=== PATIENT | male | born 1945 | race Asian ===

== ENCOUNTER 2020-04-17 14:06 | Emergency (ER) | payer MEDICARE ==
[~2020-04-17] VITALS: Ht 175.3 cm; Wt 45.4 kg
[2020-04-17 14:14] VITALS: BP 106/40
--- NOTE | 2020-04-17 14:14 | NUR ---
ED Nurse Note: Patient LETICIA HEBERT from [facility] with c/o dizziness. Per EMS, patient went to stand up and felt lightheaded and nearly fell to the ground. He was caught by nearby workers. Denies LOC/ KO. AAox4, verbally responsive. No SOB. Denies CP. Afebrile. Pt placed on electronic device monitor. ERMD at bedside.
[2020-04-17] MEDS ORDERED: SINEMET 25-1001 EAC1 ORAL (14:20)
[2020-04-17] MEDS ORDERED: MULTIVITAMINS1 EAC8 ORAL (14:20)
[2020-04-17] MEDS ORDERED: ACETAMINOPHEN500 M3 ORAL (14:20)
[2020-04-17] MEDS ORDERED: MIRALAX17 G2 ORAL (14:20)
[2020-04-17] MEDS ORDERED: FERROUS SULFAT325 MG ORAL (14:20)
[2020-04-17] MEDS ORDERED: ELIQUIS2.5 MG ORAL (14:20)
[2020-04-17] MEDS ORDERED: MECLIZINE HCL12.5 MG ORAL (14:20)
[2020-04-17] MEDS ORDERED: VITAMIN D325 MC1 PO (14:20)
[2020-04-17] MEDS ORDERED: VITAMIN B-12500 MCG ORAL (14:20)
[2020-04-17] MEDS ORDERED: SENNA8.6 M2 PO (14:20)
--- NOTE | 2020-04-17 14:33 | Emergency Room Report ---
History of Present Illness General Chief Complaint: Dizziness Source: EMS Present Illness HPI 75-year-old male with a history of dementia on Sinemet, history of DVT on Eliquis here with a near syncopal episode. Patient was at a alf and per the nursing report the patient went to stand up and felt lightheaded and nearly fell to the ground. He was caught by nearby workers. Never hit his head or his neck or had complete loss of consciousness. When paramedics arrived they said the patient was in his normal state of health as he was sitting but when he stood up he began to feel lightheaded. At this time the emergency department the patient has no complaints. Denies headache, vision change, fevers, chills, chest pain, palpitation, shortness of breath, focal numbness or weakness, back pain, abdominal pain, nausea, vomiting, diarrhea, dysuria. Allergies: Coded Allergies: No Known Allergies (Unverified , 04/17/20) COVID-19 Screening Contact w/high risk pt: No Experienced COVID-19 symptoms?: No COVID-19 Testing performed FOOD AND BEVERAGE INTERN: No Nursing Documentation-[facility] Past Medical History: No History, Except For History Of Psychiatric Problem: Yes - dementia Review of Systems All Other Systems: negative except mentioned in HPI Physical Exam Vital Signs Date Time Temp Pulse Resp B/P (MAP) Pulse Ox O2 Delivery O2 Flow Rate FiO2 04/17/20 14:09 97.5 66 18 106/40 (62) 98 Room Air Sp02 EP Interpretation: reviewed, normal General Appearance: no apparent distress, alert, non-toxic Head: normocephalic, atraumatic Eyes: bilateral eye normal inspection, bilateral eye PERRL ENT: hearing grossly normal, normal pharynx, no angioedema, normal voice Neck: full range of motion, supple/symm/no masses Respiratory: chest non-tender, lungs clear, normal breath sounds, speaking full sentences Cardiovascular #1: regular rate, rhythm, no edema Cardiovascular #2: 2+ carotid (R), 2+ carotid (L), 2+ radial (R), 2+ radial (L), 2+ dorsalis pedis (R), 2+ dorsalis pedis (L) Gastrointestinal: normal bowel sounds, non tender, soft, non-distended, no guarding, no rebound Rectal: deferred Genitourinary: normal inspection, no CVA tenderness Musculoskeletal: back normal, normal range of motion, gait/station normal, non- tender Neurologic: alert, motor strength/tone normal, oriented x3, sensory intact, responsive, speech normal Psychiatric: judgement/insight normal, memory normal, mood/affect normal, no suicidal/homicidal ideation Lymphatic: no adenopathy Medical Decision Making Diagnostic Impression: Primary Impression: Pre-syncope Additional Impression: Lightheaded ER Course EKG: Rate 63 bpm, normal axis, NSR, no ischemia, intervals WNL. No ectopy Rhythm strip: patient monitored for arrhythmias - no malignant dysrhythmias, runs of PVCs, nor pauses noted Procedure: XRAY Chest 1v Indication: Syncope Technique: XRAY Chest 1v Comparison: None Findings: Heart size and mediastinal contours are within normal limits for AP technique. There is no focal airspace consolidation, pneumothorax or pleural effusion. Osseous structures demonstrate no acute abnormality. Impression: No radiographic evidence of acute cardiopulmonary disease. Laboratory Tests Test 04/17/20 14:35 04/17/20 15:29 White Blood Count 8.4 K/UL (4.8-10.8) Red Blood Count 3.44 M/UL (4.70-6.10) L Hemoglobin 10.8 G/DL (14.2-18.0) L Hematocrit 34.6 % (42.0-52.0) L Mean Corpuscular Volume 100 FL (80-99) H Mean Corpuscular Hemoglobin 31.4 PG (27.0-31.0) H Mean Corpuscular Hemoglobin Concent 31.2 G/DL (32.0-36.0) L Red Cell Distribution Width 14.7 % (11.6-14.8) Platelet Count 150 K/UL (150-450) Mean Platelet Volume 8.5 FL (6.5-10.1) Neutrophils (%) (Auto) 65.0 % (45.0-75.0) Lymphocytes (%) (Auto) 14.3 % (20.0-45.0) L Monocytes (%) (Auto) 8.3 % (1.0-10.0) Eosinophils (%) (Auto) 11.2 % (0.0-3.0) H Basophils (%) (Auto) 1.2 % (0.0-2.0) Sodium Level 138 MMOL/L (136-145) Potassium Level 4.4 MMOL/L (3.5-5.1) Chloride Level 106 MMOL/L (98-107) Carbon Dioxide Level 27 MMOL/L (21-32) Anion Gap 5 mmol/L (5-15) Blood Urea Nitrogen 37 mg/dL (7-18) H Creatinine 1.4 MG/DL (0.55-1.30) H Estimated Glomerular Filtration Rate 49.4 mL/min (>60) Glucose Level 94 MG/DL (74-106) Calcium Level 8.6 MG/DL (8.5-10.1) Total Bilirubin 0.4 MG/DL (0.2-1.0) Aspartate Amino Transferase (AST) 21 U/L (15-37) Alanine Aminotransferase (ALT) 13 U/L (12-78) Alkaline Phosphatase 71 U/L (46-116) Troponin I 0.009 ng/mL (0.000-0.056) Total Protein 6.7 G/DL (6.4-8.2) Albumin 3.2 G/DL (3.4-5.0) L Globulin 3.5 g/dL Albumin/Globulin Ratio 0.9 (1.0-2.7) L Urine Color Pale yellow Urine Appearance Clear Urine pH 7 (4.5-8.0) Urine Specific [place] 1.005 (1.005-1.035) Urine Protein Negative (NEGATIVE) Urine Glucose (UA) Negative (NEGATIVE) Urine Ketones Negative (NEGATIVE) Urine Blood Negative (NEGATIVE) Urine Nitrite Negative (NEGATIVE) Urine Bilirubin Negative (NEGATIVE) Urine Urobilinogen Normal MG/DL (0.0-1.0) Urine Leukocyte Esterase Negative (NEGATIVE) 75-year-old male here after a presyncopal episode. Patient then had a witnessed presyncopal episode again when paramedics arrived. However he was hemodynamica lly stable in the emergency department. He had no complaints. Physical exam was unremarkable. Chest x-ray normal and EKG was unremarkable as well. CBC, CMP, troponin all normal. I spoke with Dr. Ayala at [facility] who accepted the patient for transfer. Patient transferred in stable condition. Last Vital Signs Date Time Temp Pulse Resp B/P (MAP) Pulse Ox O2 Delivery O2 Flow Rate FiO2 04/17/20 14:09 97.5 66 18 106/40 (62) 98 Room Air Sands,Sachin M.D. Apr 17, 2020 14:33
--- NOTE | 2020-04-17 14:35 | NUR ---
ED Nurse Note: Blood sent to lab.
[2020-04-17 14:58] LABS: BASOPHILS % (AUTO) 1.2 % (0.0-2.0); EOSINOPHILS % (AUTO) 11.2 % (0.0-3.0); HEMATOCRIT 34.6 % (42.0-52.0); HEMOGLOBIN 10.8 G/DL (14.2-18.0); LYMPHOCYTES % (AUTO) 14.3 % (20.0-45.0); MEAN CORPUSCULAR VOLUME 100 FL (80-99); MONOCYTES % (AUTO) 8.3 % (1.0-10.0); PLATELET COUNT 150 K/UL (150-450); RED BLOOD COUNT 3.44 M/UL (4.70-6.10); RED CELL DISTRIBUTION WIDTH 14.7 % (11.6-14.8); WHITE BLOOD COUNT 8.4 K/UL (4.8-10.8)
[2020-04-17 15:08] LABS: CALCIUM 8.6 MG/DL (8.5-10.1); CREATININE 1.4 MG/DL (0.55-1.30); POTASSIUM 4.4 MMOL/L (3.5-5.1)
[2020-04-17 15:13] LABS: ALBUMIN 3.2 G/DL (3.4-5.0); ALBUMIN/GLOBULIN RATIO 0.9 (1.0-2.7); BILIRUBIN,TOTAL 0.4 MG/DL (0.2-1.0)
--- NOTE | 2020-04-17 15:30 | NUR ---
ED Nurse Note: Urine sent to lab.
--- NOTE | 2020-04-17 16:01 | Diagnostic Imaging Report ---
Indication: Syncope Technique: XRAY Chest 1v Comparison: None Findings: Heart size and mediastinal contours are within normal limits for AP technique. There is no focal airspace consolidation, pneumothorax or pleural effusion. Osseous structures demonstrate no acute abnormality. Impression: No radiographic evidence of acute cardiopulmonary disease.
[2020-04-17 16:06] LABS: APPEARANCE,URINE CLEAR; BILIRUBIN, URINE NEGATIVE (NEGATIVE); COLOR,URINE PALE YELLOW; GLUCOSE, URINE (UA) NEGATIVE (NEGATIVE); KETONES,URINE NEGATIVE (NEGATIVE); LEUKOCYTE ESTERASE ,URINE NEGATIVE (NEGATIVE); NITRITE,URINE NEGATIVE (NEGATIVE); PH,URINE 7 (4.5-8.0); PROTEIN,URINE NEGATIVE (NEGATIVE); UROBILINOGEN,URINE NORMAL MG/DL (0.0-1.0)
[2020-04-17 17:00] VITALS: BP 115/75
--- NOTE | 2020-04-17 17:00 | NUR ---
ED Nurse Note: REPORT GIVEN TO ISMA TINSLEY. PATIENT TO BE TRANSFERRED TO [facility] UNDER THE CARE OF LUISITO ORTIZ. REPORT GIVEN TO [facility]. PATIENT LEFT VIA GURNEY WITH ALL BELONGINGS AND TRANSFER PACKET. FAMILY MEMBER NOTIFIED OF TRANSFER.
[2020-04-17 17:05] VITALS: BP 115/75
--- NOTE | 2020-04-19 20:40 | Cardiology Report ---
APPROVED REPORT EKG Measurement Heart [id number] <Conclusion> Sinus rhythm with premature supraventricular complexes Possible Left atrial enlargement Borderline ECG
== END 2020-04-17 17:00 | disposition other institution (70) ==
LOC: EDBD 14:06 → EMR 14:15
DX: R55 Syncope and collapse (principal); R42 Dizziness and giddiness; F03.90 Unspecified dementia, unspecified severity, without behavioral disturbance, psychotic disturbance, mood disturbance, and anxiety; Z86.718 Personal history of other venous thrombosis and embolism; Z79.01 Long term (current) use of anticoagulants
CPT/HCPCS: 36415; 71045; 80053; 81003; 84484; 85025; 93005; 96360; 99284